=== PATIENT | male | born 1980 | race Caucasian/White ===

== ENCOUNTER 2021-10-06 06:09 | Day surgery (SDC) | payer BC ==
[2021-10-03 14:01] VITALS: BMI 25.9
[~2021-10-06 06:09] MED LIST: HEPARIN SODIUM,PORCINE/PF 5,000 UNIT/0.5 ML SYRINGE SQ PRN; Pre Op ABX Message 1 EACH MISC MISCELLANE ONE
[2021-10-06] MEDS ORDERED: LACTATED RINGERS 1,000 ML IV SCH (06:21)
[2021-10-06] MEDS ORDERED: LIDOCAINE 1% (10MG/ML) FOR IV START INTRADERMA PRN (06:21)
[2021-10-06] MEDS ORDERED: GABAPENTIN 300 MG CAP PO PRN (06:58)
[2021-10-06] MEDS ORDERED: ACETAMINOPHEN TAB 500 MG TAB PO PRN (06:58)
[2021-10-06] MEDS ORDERED: MELOXICAM 7.5 MG TAB PO PRN (06:58)
[2021-10-06] MEDS ORDERED: FAMOTIDINE 20 MG TAB PO PRN (06:58)
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
[2021-10-06] MEDS ORDERED: ONDANSETRON 4 MG/2 ML VIAL IVP PRN (07:00)
[2021-10-06] MEDS ORDERED: HYDROmorphone 0.5 MG/0.5 ML SYRINGE IVP PRN (07:00)
[2021-10-06] MEDS ORDERED: DEXAMETHASONE SOD PHOSPHATE 4 MG/ML 1 ML VIAL IV ONE (07:15)
[2021-10-06 07:25] LABS: Basophils % (A) 1 %; Eosinophils # (A) 0.3 k/uL (0-0.7); Eosinophils % (A) 4 %; HCT 41.1 % (39.0-53.0); HGB 14.5 gm/dL (13.0-17.5); Lymphocytes # (A) 1.4 k/uL (1.0-4.8); Lymphocytes % (A) 18 %; MCH 30.6 pg (25.0-35.0); MCHC 35.2 g/dL (31.0-37.0); MCV 86.7 fL (80.0-100.0); Monocytes # (A) 0.4 k/uL (0-1.0); Monocytes % (A) 5 %; Neutrophils # (A) 5.5 k/uL (1.3-7.7); Neutrophils % (A) 72 %; Platelet Count 152 k/uL (150-450); RBC 4.74 m/uL (4.30-5.90); RDW 12.9 % (11.5-15.5); WBC 7.7 k/uL (3.8-10.6)
[2021-10-06] MEDS ORDERED: LIDOCAINE 2% INJ 20 MG/ML (2 ML VIAL) ONE (07:30)
[2021-10-06] MEDS ORDERED: fentaNYL (PF) 50 MCG/ML 2 ML AMP ONE (07:30)
[2021-10-06] MEDS ORDERED: KETOROLAC 15 MG/ML 1 ML VIAL ONE (07:30)
[2021-10-06] MEDS ORDERED: FAMOTIDINE 20 MG/2 ML VIAL ONE (07:30)
[2021-10-06] MEDS ORDERED: PROPOFOL 10 MG/ML 20 ML VIAL IV ONE (07:30)
[2021-10-06] MEDS ORDERED: MIDAZOLAM 2 MG/2 ML VIAL ONE (07:30)
[2021-10-06] MEDS ORDERED: BUPIVACAIN-EPI 0.25%-1:200,000 30 ML VIAL SQ ONE (07:34)
[2021-10-06] MEDS ORDERED: ceFAZolin 1,000 MG VIAL IVPB ONE (07:34)
[2021-10-06 07:37] LABS: African American GFR (CKD) >90 (>60 ml/min/1.73 sqM); Anion Gap 7 mmol/L; Blood Urea Nitrogen 23 mg/dL (9-20); Calcium 8.7 mg/dL (8.4-10.2); Carbon Dioxide 27 mmol/L (22-30); Chloride 105 mmol/L (98-107); Glucose 100 mg/dL (74-99); Non-African American GFR(CKD) >90 (>60 ml/min/1.73 sqM); Potassium 4.1 mmol/L (3.5-5.1); Sodium 139 mmol/L (137-145)
[2021-10-06 08:32] VITALS: TEMP 97.3
[2021-10-06 08:44] VITALS: RESP 16
--- NOTE | 2021-10-06 08:46 | P.OP ---
Date of Procedure: 10/06/21 Description of Procedure: SURGEON: JENNY WILSON MD [employer] PROFESSOR: None. PREOPERATIVE DIAGNOSES: 1. Right chest wall mass POSTOPERATIVE DIAGNOSES: 1. Right chest/flank subfascial lipoma, 6 cm PROCEDURES PERFORMED: 1. Excision of the subfascial right flank lipoma, 6 cm 2. Intermediate closure of 8 cm along the flank ANESTHESIA: GETA and local ESTIMATED BLOOD LOSS: 5 mL. SPECIMENS REMOVED: Chest wall mass COMPLICATIONS: None. FINDINGS: 1. Lipomatous mass along the right flank at the border of the right inferior rib cage 2. Deep flank lipoma extended to the subfascial muscle, completely excised INDICATIONS: The patient is a 40-year-old male with painful and palpable tumor along the right inferior lateral chest wall. Now he presents for surgical intervention. Benefits and risks of surgical intervention were described including bleeding, infection. Informed consent was obtained. DESCRIPTION OR PROCEDURE: Patient was brought into the operating room, laid in supine position. After general induction, the patient was repositioned in the left lateral recumbent position with exposure of the right flank/chest wall. The chest wall and flank were prepped and draped in a standard sterile fashion with ChloraPrep. Timeout protocol was confirmed with the surgical team regarding the patient's name, procedure to be performed including preoperative medications. DVT prophylaxis was confirmed. A field block was placed of the right flank/chest wall. Indelible marker was kyaw bernabe around the mass. A transverse incision using #15 blade was made along the marking into the dermis and subcutaneous tissue into the fascia were circular lipomatous 6 cm mass was extracted. Electro-Bovie cautery was used to excise the lesion down to the fascia in a circumferential fashion. A 6 cm lipoma was excised and measured. 0 Vicryl for the deep subcutaneous tissue followed by 3-0 Monocryl in a running subcuticular fashion was placed along the dermis. The skin was cleansed and Exofin tape was applied followed by Optifoam. Local anesthetic was placed. At the end of the procedure, needle, sponge, and instrument count was verified correct by molding process technician. The patient was awoken and taken to the second stage postanesthesia care unit. The patient tolerated the procedure well. Postoperative dressing and instructions including no extreme twisting of the torso such as kayaking excluded and wearing compression dressing described. Plan - Discharge Summary Discharge Rx Participant: No New Discharge Prescriptions: New Ibuprofen [Motrin] 600 mg PO Q8HR PRN #30 tab PRN Reason: Pain Acetaminophen Tab [Tylenol Tab] 1,000 mg PO Q6HR PRN #30 tablet PRN Reason: Pain Discharge Medication List Acetaminophen Tab [Tylenol Tab] 1,000 mg PO Q6HR PRN #30 tablet 10/06/21 [Rx] Ibuprofen [Motrin] 600 mg PO Q8HR PRN #30 tab 10/06/21 [Rx] Follow up Appointment(s)/Referral(s): Jenny Wilson MD [STAFF PHYSICIAN] - 10/10/21 Patient Instructions/Handouts: Soft Tissue Mass (ED), Lipoma Removal (DC), Abdominal Binder (DC), *Surgery [facility] - Managing Your Pain After Surgery Without Opioids Activity/Diet/Wound Care/Special Instructions: DO NOT REMOVE DRESSING. SEE INSTRUCTIONS ON DRESSING NO KAYAKING THIS WEEKEND - high risk of rupture of incision and infection. RETURN TO WORK AFTER 10/10 shower. No bath tub soaks for two weeks until October 20 Diet as tolerated. Use Tylenol and ibuprofen or Aleve scheduled for the next 24-48 hours for best pain relief. Use ice along incisions for today to prevent swelling. Wear pressure dressing/binder with folded tube sock at area. Discharge Disposition: HOME SELF-CARE
[2021-10-06 10:16] VITALS: BP 117/69; PULSE 59
== END 2021-10-06 10:17 | disposition home or self-care (01) ==
LOC: OR 06:09
PROVIDERS: ATTEND Surgery Plastic and Reconstructive Surgery
DX: D17.1 Benign lipomatous neoplasm of skin and subcutaneous tissue of trunk (principal); K21.9 Gastro-esophageal reflux disease without esophagitis; M19.072 Primary osteoarthritis, left ankle and foot; Z87.442 Personal history of urinary calculi; Z86.14 Personal history of Methicillin resistant Staphylococcus aureus infection; F17.200 Nicotine dependence, unspecified, uncomplicated
CPT/HCPCS: 88304; 80048; 85025; 21554; J2250; J1100; J2405; J0690; J3010; J1885; J2704; J1644; J2001